=== PATIENT | female | born 2000 | race Caucasian/White ===

== ENCOUNTER 2019-03-24 17:39 | Inpatient (IN) | payer BC, OTHER ==
[~2019-03-24] VITALS: Ht 162.6 cm; Wt 63.6 kg
[2019-03-24] MEDS: LACTATED RINGERS 1,000 ML IV SCH (17:40)
[2019-03-24] MEDS ORDERED: NEWBORN KIT ONE (17:52)
[2019-03-24] MEDS ORDERED: MISOPROSTOL 200 MCG TABLET ONE (17:53)
[2019-03-24] MEDS ORDERED: LIDOCAINE 1%, 20ML ONE ×2 (17:53)
[2019-03-24] MEDS ORDERED: OXYTOCIN 30U/ 0.9% NaCL 500ML 1,000 ML ONE (17:53)
[2019-03-24] MEDS ORDERED: DOCUSATE 100 MG CAPSULE PO PRN (18:00)
[2019-03-24] MEDS ORDERED: MISOPROSTOL 200 MCG TABLET PR PRN (18:00)
[2019-03-24] MEDS ORDERED: OXYcodone/APAP 5/325MG TABLET PO PRN ×2 (18:00)
[2019-03-24] MEDS ORDERED: ONDANSETRON 2MG/ML, 2ML IV PRN (18:00)
[2019-03-24] MEDS ORDERED: SIMETHICONE 80 MG CHEW TAB PO PRN (18:00)
[2019-03-24 18:25] LABS: MEAN CORPUSCULAR VOLUME 94.1 fL (80-100); MEAN PLATELET VOLUME 8.4 fL (7.4-10.4); PLATELET COUNT 272 x10^3/uL (130-400); RED BLOOD COUNT 3.85 x10^6/uL (3.82-5.3); RED CELL DISTRIBUTION WIDTH 14.5 % (9.6-15.2)
[2019-03-24 18:27] LABS: MD YES
[2019-03-24 18:41] LABS: BAND#(MANUAL) 4.24 x10^3/uL; BANDS%(MANUAL) 14 % (0-7); LYMPHS% (MANUAL) 1 % (22-44); MONOS#(MANUAL) 0.61 x10^3/uL (0.3-2.7); MONOS% (MANUAL) 2 % (2-9); SEG#(MANUAL) 25.15 x10^3/uL (1.8-8); SEGS% (MANUAL) 83 % (42-75)
[2019-03-24 18:43] LABS: POLYCHROMASIA 1+
[2019-03-24 18:44] LABS: <PLATELET ESTIMATE> ADEQUATE; <PLT MORPHOLOGY> NORMAL PLT MORPH
[2019-03-24] MEDS: OXYTOCIN 30U/ 0.9% NaCL 500ML 500 ML IV SCH ×6 (19:10→23:40)
[2019-03-24 19:16] VITALS: BP 120/74
[2019-03-24 20:20] VITALS: BP_SYST 104; BP_SYST 113; BP_DIAS 66; BP_DIAS 73
[2019-03-24 23:28] LABS: CULTURE INDICATED? YES; MICROSCOPIC INDICATED
[2019-03-25] MEDS: LACTATED RINGERS 1,000 ML IV SCH ×3 (00:34→20:00)
[2019-03-25 00:35] VITALS: BP 109/64
[2019-03-25] MEDS: OXYTOCIN 30U/ 0.9% NaCL 500ML 500 ML IV SCH ×4 (01:06→23:56)
[2019-03-25 01:17] LABS: MEAN CORPUSCULAR HEMOGLOBIN 32.2 pg (27.0-34.8); MEAN CORPUSCULAR HGB CONC 34.1 g/dL (32.4-35.8); MEAN CORPUSCULAR VOLUME 94.6 fL (80-100); MEAN PLATELET VOLUME 8.5 fL (7.4-10.4); PLATELET COUNT 243 x10^3/uL (130-400); RED BLOOD COUNT 3.18 x10^6/uL (3.82-5.3); RED CELL DISTRIBUTION WIDTH 14.2 % (9.6-15.2)
[2019-03-25 01:38] LABS: BASOPHILS # (AUTO) 0.01 x10^3/uL (0-0.3); BASOPHILS % (AUTO) 0 % (0-1); EOSINOPHILS % (AUTO) 0 % (1-7); LYMPHOCYTES # (AUTO) 1.21 x10^3/uL (1-6.1); LYMPHOCYTES % (AUTO) 5 % (22-44); MD SCAN; MONOCYTES # (AUTO) 1.08 x10^3/uL (0-1.4); MONOCYTES % (AUTO) 5 % (2-9); NEUTROPHILS # (AUTO) 21.17 x10^3/uL (1.8-8.0); NEUTROPHILS % (AUTO) 90 % (42-75)
[2019-03-25 02:20] LABS: AMPHETAMINE SCREEN, URINE Negative (Negative); BARBITURATE SCREEN, URINE Negative (Negative); BENZODIAZEPINE SCREEN, URINE Negative (Negative); CANNABINOID SCREEN, URINE Negative (Negative); COCAINE SCREEN, URINE Positive (Negative); METHADONE SCREEN, URINE Negative (Negative); OPIATE SCREEN, URINE Negative (Negative)
[2019-03-25] MEDS: CEFTRIAXONE PMX 1GM/50ML 50 ML IV SCH ×2 (04:13→16:14)
[2019-03-25 05:00] VITALS: BP 94/58
[2019-03-25 06:16] LABS: BASOPHILS % (AUTO) 0 % (0-1); EOSINOPHILS % (AUTO) 0 % (1-7); LYMPHOCYTES # (AUTO) 1.37 x10^3/uL (1-6.1); LYMPHOCYTES % (AUTO) 8 % (22-44); MD NO; MEAN CORPUSCULAR HEMOGLOBIN 32.4 pg (27.0-34.8); MEAN CORPUSCULAR VOLUME 95.3 fL (80-100); MEAN PLATELET VOLUME 8.4 fL (7.4-10.4); MONOCYTES # (AUTO) 1.03 x10^3/uL (0-1.4); MONOCYTES % (AUTO) 6 % (2-9); NEUTROPHILS # (AUTO) 15.53 x10^3/uL (1.8-8.0); NEUTROPHILS % (AUTO) 87 % (42-75); PLATELET COUNT 224 x10^3/uL (130-400); RED BLOOD COUNT 2.83 x10^6/uL (3.82-5.3); RED CELL DISTRIBUTION WIDTH 14.3 % (9.6-15.2)
[2019-03-25 07:00] VITALS: BP 94/54
[2019-03-25] MEDS: PRENATAL VIT/IRON/FA 1 EACH TABLET PO SCH (09:00)
[2019-03-25 16:00] VITALS: BP 93/57
[2019-03-25] MEDS: FERROUS SULFATE 325 MG TABLET PO SCH ×2 (17:00→17:40)
[2019-03-25] MEDS ORDERED: IBUPROFEN 600 MG TABLET ONE (17:41)
[2019-03-25] MEDS: IBUPROFEN 600 MG TABLET PO PRN (18:00)
[2019-03-25 20:00] VITALS: BP 109/69
[2019-03-26] MEDS: LACTATED RINGERS 1,000 ML IV SCH ×2 (04:00→12:00)
[2019-03-26] MEDS: CEFTRIAXONE PMX 1GM/50ML 50 ML IV SCH ×2 (04:03→16:00)
[2019-03-26] MEDS: IBUPROFEN 600 MG TABLET PO PRN ×2 (04:35→18:16)
[2019-03-26 07:49] LABS: BASOPHILS # (AUTO) 0.01 x10^3/uL (0-0.3); BASOPHILS % (AUTO) 0 % (0-1); EOSINOPHILS # (AUTO) 0.04 x10^3/uL (0-0.8); EOSINOPHILS % (AUTO) 1 % (1-7); HEMOGRAM NOTE RECHECKED; LYMPHOCYTES # (AUTO) 0.97 x10^3/uL (1-6.1); LYMPHOCYTES % (AUTO) 11 % (22-44); MD NO; MEAN CORPUSCULAR HEMOGLOBIN 31.5 pg (27.0-34.8); MEAN CORPUSCULAR HGB CONC 33.5 g/dL (32.4-35.8); MEAN CORPUSCULAR VOLUME 94.1 fL (80-100); MEAN PLATELET VOLUME 7.7 fL (7.4-10.4); MONOCYTES # (AUTO) 0.49 x10^3/uL (0-1.4); MONOCYTES % (AUTO) 5 % (2-9); NEUTROPHILS # (AUTO) 7.74 x10^3/uL (1.8-8.0); NEUTROPHILS % (AUTO) 84 % (42-75); PLATELET COUNT 190 x10^3/uL (130-400); RED BLOOD COUNT 2.77 x10^6/uL (3.82-5.3); RED CELL DISTRIBUTION WIDTH 14.6 % (9.6-15.2)
[2019-03-26 08:20] VITALS: BP 106/70
[2019-03-26] MEDS: PRENATAL VIT/IRON/FA 1 EACH TABLET PO SCH (08:30)
[2019-03-26] MEDS: FERROUS SULFATE 325 MG TABLET PO SCH ×2 (08:30→18:16)
[2019-03-26] MEDS: OXYTOCIN 30U/ 0.9% NaCL 500ML 500 ML IV SCH (09:56)
[2019-03-26 14:06] LABS: AMPHETAMINE SCREEN, URINE Negative (Negative); BARBITURATE SCREEN, URINE Negative (Negative); BENZODIAZEPINE SCREEN, URINE Negative (Negative); CANNABINOID SCREEN, URINE Negative (Negative); COCAINE SCREEN, URINE Negative (Negative); METHADONE SCREEN, URINE Negative (Negative); OPIATE SCREEN, URINE Negative (Negative)
== END 2019-03-26 18:20 | disposition home or self-care (01) | DRG 776 ==
LOC: LDOP 17:39 → LDIP 17:53 → 2NW 19:50
PROVIDERS: ADMIT Obstetrics & Gynecology; ATTEND Obstetrics & Gynecology
PROC: 0HQ9XZZ Repair Perineum Skin, External Approach (ICD-10-PCS; principal; 2019-03-24)
DX: O71.4 Obstetric high vaginal laceration alone (principal); Z37.0 Single live birth
CPT/HCPCS: 36415; 59414; 80307; 81001; 85025; 86592; 86762; 86850; 86900; 87040; 87070; 87075; 87086; 87205; 87340; 87389; 88305; G0378; J0696; J2590; J7120